=== PATIENT | female | born 1980 | race Caucasian/White ===

== ENCOUNTER → 2021-12-07 | Outpatient (CLI) | payer OTHER | LOC: KOH-I 11:29 | DX: M54.2 Cervicalgia (principal) | CPT/HCPCS: 72040 ==

== ENCOUNTER 2021-12-25 20:13 | Emergency (ER) | payer OTHER ==
[2021-12-25 21:15] LABS: HEMOGLOBIN 10.6 gm/dl (12.3-15.3); RED BLOOD COUNT 4.83 M/UL (4.00-5.10); WHITE BLOOD COUNT 9.2 K/UL (4.5-11.0)
[2021-12-25 21:49] LABS: BUN/CREATININE RATIO 10 (0-10)
[2021-12-26] MEDS ORDERED: ZOFRAN ODT 4 MG4 MG PO (00:17)
[2021-12-26] MEDS ORDERED: BENTYL 20MG TAB20 MG PO (00:17)
== END 2021-12-26 00:35 | disposition home or self-care (01) ==
LOC: ER1 20:13
PROVIDERS: Student in an Organized Health Care Education/Training Program
DX: R10.84 Generalized abdominal pain (principal); R10.817 Generalized abdominal tenderness; F17.290 Nicotine dependence, other tobacco product, uncomplicated
CPT/HCPCS: 80053; 81001; 82550; 82553; 83690; 84484; 84703; 85025; 93005; 99284

== ENCOUNTER → 2022-01-22 | Outpatient (CLI) | payer OTHER ==
[~2022-01-22] MED LIST: BENTYL 20MG TAB20 MG PO; ZOFRAN ODT 4 MG4 MG PO
== END ==
LOC: KOH-I 13:16
DX: R16.1 Splenomegaly, not elsewhere classified (principal); K80.20 Calculus of gallbladder without cholecystitis without obstruction
CPT/HCPCS: 74176